=== PATIENT | male | born 1995 | race Caucasian/White ===

== ENCOUNTER 2017-10-07 07:43 | Emergency (ER) | payer MEDICAID, OTHER ==
[2017-10-07 08:41] LABS: ADD MAN DIFF? NO
[2017-10-07 08:44] LABS: BASOPHILS % 0.6 % (0.0-2.0); EOSINOPHILS # 0.2 10^3/ul (0.0-0.5); EOSINOPHILS % 2.7 % (0.0-7.0); HEMATOCRIT 37.1 % (42.0-52.0); HEMOGLOBIN 12.3 g/dl (14.0-18.0); LYMPHOCYTES # 1.2 10^3/ul (0.8-2.9); LYMPHOCYTES % 19.2 % (15.0-51.0); MEAN CORPUSCULAR HEMOGLOBIN 33.5 pg (29.0-33.0); MEAN CORPUSCULAR HGB CONC 33.2 g/dl (32.0-37.0); MEAN CORPUSCULAR VOLUME 101.1 fl (82.0-101.0); MONOCYTE # 0.7 10^3/ul (0.3-0.9); MONOCYTES % 10.6 % (0.0-11.0); NEUTROPHIL # 4.1 10^3/ul (1.6-7.5); NEUTROPHILS % 66.6 % (39.0-77.0); PLATELET COUNT 179 10^3/UL (140-415); RED BLOOD COUNT 3.67 10^6/ul (4.70-6.10)
[2017-10-07 08:44] LABS: WHITE BLOOD COUNT 6.2 10^3/ul (4.8-10.8)
[2017-10-07 09:08] LABS: ANION GAP 24 (8-16); BLOOD UREA NITROGEN 40 mg/dl (7-20); CALCIUM 8.7 mg/dl (8.4-10.2); CARBON DIOXIDE 25 mmol/L (21-31); CHLORIDE 96 mmol/L (97-110); CREATININE 10.04 mg/dl (0.61-1.24); GLUCOSE 104 mg/dl (70-220); POTASSIUM 4.7 mmol/L (3.5-5.1); SODIUM 140 mmol/L (135-144)
== END 2017-10-07 10:02 | disposition home or self-care (01) ==
LOC: E/R 07:43
DX: T82.898A Other specified complication of vascular prosthetic devices, implants and grafts, initial encounter (principal); N18.6 End stage renal disease; Y82.8 Other medical devices associated with adverse incidents; Z99.2 Dependence on renal dialysis
CPT/HCPCS: 80048; 85025; 93005; 93931; 99285-25

== ENCOUNTER 2018-04-01 12:11 | Emergency (ER) | payer SELFPAY, MEDICAID | END 2018-04-01 13:45 | disposition home or self-care (01) | LOC: FTE 13:45 | DX: S23.3XXA Sprain of ligaments of thoracic spine, initial encounter (principal); N18.6 End stage renal disease; X58.XXXA Exposure to other specified factors, initial encounter; Y92.9 Unspecified place or not applicable | CPT/HCPCS: 72072; 99283-25 ==

== ENCOUNTER 2018-04-03 20:04 | Emergency (ER) | payer MEDICAID ==
[2018-04-03 21:09] LABS: ADD MAN DIFF? NO
[2018-04-03 21:11] LABS: BASOPHILS % 0.2 % (0.0-2.0); HEMATOCRIT 35.3 % (42.0-52.0); HEMOGLOBIN 11.8 g/dl (14.0-18.0); LYMPHOCYTES # 0.8 10^3/ul (0.8-2.9); MEAN CORPUSCULAR HEMOGLOBIN 33.1 pg (29.0-33.0); MEAN CORPUSCULAR HGB CONC 33.4 g/dl (32.0-37.0); MEAN CORPUSCULAR VOLUME 98.9 fl (82.0-101.0); MEAN PLATELET VOLUME 9.9 fl (7.4-10.4); MONOCYTE # 0.3 10^3/ul (0.3-0.9); MONOCYTES % 2.9 % (0.0-11.0); NEUTROPHIL # 10.6 10^3/ul (1.6-7.5); NEUTROPHILS % 89.5 % (39.0-77.0); PLATELET COUNT 196 10^3/UL (140-415); RED BLOOD COUNT 3.57 10^6/ul (4.70-6.10); RED CELL DISTRIBUTION WIDTH 13.2 % (11.5-14.5)
[2018-04-03 21:11] LABS: WHITE BLOOD COUNT 11.8 10^3/ul (4.8-10.8)
[2018-04-03 21:31] LABS: ANION GAP 21 (5-13); BLOOD UREA NITROGEN 74 mg/dl (7-20); CALCIUM 10.1 mg/dl (8.4-10.2); CARBON DIOXIDE 18 mmol/L (21-31); CHLORIDE 99 mmol/L (97-110); GLUCOSE 215 mg/dl (70-220); POTASSIUM 4.7 mmol/L (3.5-5.1); SODIUM 138 mmol/L (135-144)
[2018-04-03 21:43] LABS: TROPONIN-I 0.018 ng/ml (0.000-0.120)
[2018-04-03 22:32] LABS: CREATININE 14.79 mg/dl (0.61-1.24); Estimated GFR 4 mL/min (>60)
== END 2018-04-04 00:24 | disposition home or self-care (01) ==
LOC: E/R 04-04 00:24
DX: N18.6 End stage renal disease (principal); T40.2X5A Adverse effect of other opioids, initial encounter; R42 Dizziness and giddiness
CPT/HCPCS: 36415; 80048; 84484; 85025; 93005; 99284-25

== ENCOUNTER 2018-07-12 20:42 | Inpatient (IN) | payer MEDICAID ==
[2018-07-12 21:47] LABS: ADD MAN DIFF? NO
[2018-07-12 21:49] LABS: BASOPHIL # 0.1 10^3/ul (0.0-0.1); BASOPHILS % 0.8 % (0.0-2.0); EOSINOPHILS # 0.3 10^3/ul (0.0-0.5); EOSINOPHILS % 3.4 % (0.0-7.0); HEMATOCRIT 33.4 % (42.0-52.0); HEMOGLOBIN 10.8 g/dl (14.0-18.0); LYMPHOCYTES # 1.7 10^3/ul (0.8-2.9); MEAN CORPUSCULAR HEMOGLOBIN 31.3 pg (29.0-33.0); MEAN CORPUSCULAR HGB CONC 32.3 g/dl (32.0-37.0); MEAN CORPUSCULAR VOLUME 96.8 fl (82.0-101.0); MEAN PLATELET VOLUME 9.9 fl (7.4-10.4); MONOCYTE # 0.8 10^3/ul (0.3-0.9); MONOCYTES % 7.4 % (0.0-11.0); NEUTROPHIL # 7.2 10^3/ul (1.6-7.5); PLATELET COUNT 172 10^3/UL (140-415); RED BLOOD COUNT 3.45 10^6/ul (4.70-6.10); RED CELL DISTRIBUTION WIDTH 12.6 % (11.5-14.5)
[2018-07-12 21:49] LABS: WHITE BLOOD COUNT 10.1 10^3/ul (4.8-10.8)
[2018-07-12] MEDS: morphine 2 MG INJ IV (21:57)
[2018-07-12 22:05] LABS: ALANINE AMINOTRANSFERASE 44 IU/L (13-69); ALBUMIN 4.2 g/dl (3.3-4.9); ALBUMIN/GLOBULIN RATIO 1.61; ALKALINE PHOSPHATASE 85 IU/L (42-121); ANION GAP 18 (5-13); ASPARTATE AMINO TRANSFERASE 16 IU/L (15-46); BILIRUBIN,INDIRECT 0.2 mg/dl (0-1.1); BILIRUBIN,TOTAL 0.2 mg/dl (0.2-1.3); BLOOD UREA NITROGEN 100 mg/dl (7-20); CALCIUM 9.7 mg/dl (8.4-10.2); CARBON DIOXIDE 17 mmol/L (21-31); CHLORIDE 105 mmol/L (97-110); GLUCOSE 81 mg/dl (70-220); LIPASE 100 U/L (23-300); POTASSIUM 5.3 mmol/L (3.5-5.1); SODIUM 140 mmol/L (135-144); TOTAL PROTEIN 6.8 g/dl (6.1-8.1)
[2018-07-12 22:11] LABS: CREATININE 15.22 mg/dl (0.61-1.24); Estimated GFR 4 mL/min (>60)
[2018-07-12 22:17] LABS: TROPONIN-I 0.045 ng/ml (0.000-0.120)
[2018-07-12 22:30] LABS: B-TYPE NATRIURETIC PEPTIDE 52600 PG/ML (0-125)
[2018-07-13] MEDS ORDERED: NACL 0.9% 3 ML SYG IV (00:30)
[2018-07-13] MEDS ORDERED: ONDANSETRON 4 MG TAB PO (00:30)
[2018-07-13] MEDS ORDERED: BISACODYL (EC) 5 MG TAB PO (00:30)
[2018-07-13] MEDS ORDERED: DOCUSATE SODIUM 100 MG CAP PO (00:30)
[2018-07-13] MEDS: HEPARIN 5,000 UNIT/1 ML VIAL SC ×4 (00:54→21:47)
[2018-07-13] MEDS: BACLOFEN 10 MG TAB PO ×3 (05:34→21:24)
[2018-07-13 05:40] LABS: ADD MAN DIFF? NO
[2018-07-13 05:41] LABS: BASOPHIL # 0.1 10^3/ul (0.0-0.1); BASOPHILS % 0.8 % (0.0-2.0); EOSINOPHILS # 0.1 10^3/ul (0.0-0.5); HEMOGLOBIN 11.4 g/dl (14.0-18.0); LYMPHOCYTES # 1.5 10^3/ul (0.8-2.9); LYMPHOCYTES % 17.6 % (15.0-51.0); MEAN CORPUSCULAR HEMOGLOBIN 31.8 pg (29.0-33.0); MEAN CORPUSCULAR HGB CONC 32.6 g/dl (32.0-37.0); MEAN CORPUSCULAR VOLUME 97.5 fl (82.0-101.0); MONOCYTE # 0.6 10^3/ul (0.3-0.9); MONOCYTES % 7.4 % (0.0-11.0); NEUTROPHIL # 6.3 10^3/ul (1.6-7.5); NEUTROPHILS % 72.7 % (39.0-77.0); PLATELET COUNT 164 10^3/UL (140-415); RED BLOOD COUNT 3.59 10^6/ul (4.70-6.10); RED CELL DISTRIBUTION WIDTH 12.1 % (11.5-14.5)
[2018-07-13 05:41] LABS: WHITE BLOOD COUNT 8.7 10^3/ul (4.8-10.8)
[2018-07-13 06:01] LABS: ALANINE AMINOTRANSFERASE 38 IU/L (13-69); ALBUMIN 4.4 g/dl (3.3-4.9); ALBUMIN/GLOBULIN RATIO 1.62; ALKALINE PHOSPHATASE 84 IU/L (42-121); ANION GAP 20 (5-13); ASPARTATE AMINO TRANSFERASE 9 IU/L (15-46); BILIRUBIN,INDIRECT 0.3 mg/dl (0-1.1); BILIRUBIN,TOTAL 0.3 mg/dl (0.2-1.3); BLOOD UREA NITROGEN 105 mg/dl (7-20); CALCIUM 9.9 mg/dl (8.4-10.2); CARBON DIOXIDE 15 mmol/L (21-31); CHLORIDE 106 mmol/L (97-110); CHOL/HDL RATIO 2.6 RATIO; CHOLESTEROL 117 mg/dl (100-200); GLUCOSE 76 mg/dl (70-220); HDL CHOLESTEROL 44 mg/dl (30-63); LDL CHOLESTEROL,CALCULATED 56 mg/dl; SODIUM 141 mmol/L (135-144); TOTAL PROTEIN 7.1 g/dl (6.1-8.1); TRIGLYCERIDES 84 mg/dl (0-149)
[2018-07-13 06:08] LABS: CREATININE 16.18 mg/dl (0.61-1.24); Estimated GFR 4 mL/min (>60)
[2018-07-13 06:09] LABS: POTASSIUM 6.1 mmol/L (3.5-5.1)
[2018-07-13] MEDS: SODIUM POLYSTYRENE 15 GM KIT (POWDER + SORBITOL) PO (06:44)
[2018-07-13] MEDS: NA BICARBONATE 8.4% 50 ML SYG IV (06:44)
[2018-07-13] MEDS: ALBUTEROL 0.5% (NEB) 2.5 MG/0.5 ML AMP INH (07:04)
[2018-07-13] MEDS: CALCIUM ACETATE 667 MG CAP PO ×2 (09:04→17:55)
[2018-07-13] MEDS: SEVELAMER CARBONATE 0.8 GM PKT PO ×2 (09:05→17:55)
[2018-07-13] MEDS: METOPROLOL (XL) 25 MG TAB PO (09:05)
[2018-07-13] MEDS: SEVELAMER CARBONATE 2.4 GM PKT PO ×2 (09:05→17:55)
[2018-07-13] MEDS: MULTIVIT/CA CARB/B CMPLX/FA TAB PO (09:05)
[2018-07-13] MEDS: PANTOPRAZOLE (EC) 40 MG TAB PO (12:00)
[2018-07-13 14:36] LABS: HEPATITIS B SURFACE ANTIGEN NEGATIVE (NEGATIVE)
[2018-07-13] MEDS: METOPROLOL (XL) 50 MG TAB PO (16:16)
[2018-07-13] MEDS: hydrALAzine 20 MG INJ IV (17:28)
[2018-07-13] MEDS: ACETAMINOPHEN 325 MG TAB PO (18:31)
[2018-07-13] MEDS ORDERED: METOPROLOL (XL) 50 MG TAB PO (21:00)
[2018-07-13] MEDS ORDERED: SUMATRIPTAN 6 MG/0.5 ML INJ SC (23:30)
[2018-07-14] MEDS: PIPER-TAZO 2.25 GM (PMX) 50 ML IVPB ×2 (01:40→14:00)
[2018-07-14] MEDS: SUMATRIPTAN 6 MG/0.5 ML INJ SC (01:43)
[2018-07-14] MEDS: PANTOPRAZOLE (EC) 40 MG TAB PO (05:48)
[2018-07-14] MEDS: BACLOFEN 10 MG TAB PO ×3 (05:48→21:56)
[2018-07-14] MEDS: HEPARIN 5,000 UNIT/1 ML VIAL SC ×3 (05:54→21:57)
[2018-07-14] MEDS: SEVELAMER CARBONATE 0.8 GM PKT PO ×3 (08:02→17:55)
[2018-07-14] MEDS: CALCIUM ACETATE 667 MG CAP PO ×3 (08:02→17:59)
[2018-07-14] MEDS: MULTIVIT/CA CARB/B CMPLX/FA TAB PO (08:02)
[2018-07-14] MEDS: SEVELAMER CARBONATE 2.4 GM PKT PO ×3 (08:02→17:59)
[2018-07-14] MEDS: METOPROLOL (XL) 50 MG TAB PO ×2 (08:03→21:56)
[2018-07-14 08:29] LABS: ADD MAN DIFF? NO
[2018-07-14 08:49] LABS: BASOPHILS % 0.4 % (0.0-2.0); EOSINOPHILS # 0.1 10^3/ul (0.0-0.5); EOSINOPHILS % 1.1 % (0.0-7.0); HEMATOCRIT 36.1 % (42.0-52.0); HEMOGLOBIN 12.3 g/dl (14.0-18.0); LYMPHOCYTES # 1.3 10^3/ul (0.8-2.9); LYMPHOCYTES % 16.4 % (15.0-51.0); MEAN CORPUSCULAR HEMOGLOBIN 31.3 pg (29.0-33.0); MEAN CORPUSCULAR HGB CONC 34.1 g/dl (32.0-37.0); MEAN CORPUSCULAR VOLUME 91.9 fl (82.0-101.0); MEAN PLATELET VOLUME 10.5 fl (7.4-10.4); MONOCYTE # 0.7 10^3/ul (0.3-0.9); MONOCYTES % 9.6 % (0.0-11.0); NEUTROPHIL # 5.5 10^3/ul (1.6-7.5); NEUTROPHILS % 72.2 % (39.0-77.0); PLATELET COUNT 194 10^3/UL (140-415); RED BLOOD COUNT 3.93 10^6/ul (4.70-6.10); RED CELL DISTRIBUTION WIDTH 11.9 % (11.5-14.5)
[2018-07-14 08:49] LABS: WHITE BLOOD COUNT 7.6 10^3/ul (4.8-10.8)
[2018-07-14 09:03] LABS: ALANINE AMINOTRANSFERASE 25 IU/L (13-69); ALBUMIN/GLOBULIN RATIO 1.48; ALKALINE PHOSPHATASE 73 IU/L (42-121); ANION GAP 16 (5-13); ASPARTATE AMINO TRANSFERASE 9 IU/L (15-46); BILIRUBIN,INDIRECT 0.6 mg/dl (0-1.1); BILIRUBIN,TOTAL 0.6 mg/dl (0.2-1.3); BLOOD UREA NITROGEN 55 mg/dl (7-20); CALCIUM 8.9 mg/dl (8.4-10.2); CARBON DIOXIDE 30 mmol/L (21-31); CHLORIDE 89 mmol/L (97-110); CREATININE 10.79 mg/dl (0.61-1.24); Estimated GFR 6 mL/min (>60); GLUCOSE 87 mg/dl (70-220); POTASSIUM 3.9 mmol/L (3.5-5.1); SODIUM 135 mmol/L (135-144); TOTAL PROTEIN 6.7 g/dl (6.1-8.1)
[2018-07-15] MEDS: BACLOFEN 10 MG TAB PO ×2 (05:27→14:00)
[2018-07-15] MEDS: HEPARIN 5,000 UNIT/1 ML VIAL SC ×2 (05:28→14:00)
[2018-07-15] MEDS: PANTOPRAZOLE (EC) 40 MG TAB PO (05:28)
[2018-07-15 06:50] LABS: ADD MAN DIFF? NO
[2018-07-15 06:55] LABS: WHITE BLOOD COUNT 7.7 10^3/ul (4.8-10.8)
[2018-07-15 06:55] LABS: BASOPHIL # 0.1 10^3/ul (0.0-0.1); BASOPHILS % 0.7 % (0.0-2.0); EOSINOPHILS % 0.5 % (0.0-7.0); HEMATOCRIT 36.6 % (42.0-52.0); HEMOGLOBIN 12.2 g/dl (14.0-18.0); LYMPHOCYTES # 0.6 10^3/ul (0.8-2.9); MEAN CORPUSCULAR HEMOGLOBIN 31.2 pg (29.0-33.0); MEAN CORPUSCULAR HGB CONC 33.3 g/dl (32.0-37.0); MEAN CORPUSCULAR VOLUME 93.6 fl (82.0-101.0); MEAN PLATELET VOLUME 10.6 fl (7.4-10.4); MONOCYTE # 0.7 10^3/ul (0.3-0.9); NEUTROPHIL # 6.2 10^3/ul (1.6-7.5); NEUTROPHILS % 81.3 % (39.0-77.0); PLATELET COUNT 178 10^3/UL (140-415); RED BLOOD COUNT 3.91 10^6/ul (4.70-6.10); RED CELL DISTRIBUTION WIDTH 11.9 % (11.5-14.5)
[2018-07-15 07:16] LABS: ALANINE AMINOTRANSFERASE 27 IU/L (13-69); ALBUMIN/GLOBULIN RATIO 1.42; ALKALINE PHOSPHATASE 68 IU/L (42-121); ANION GAP 20 (5-13); ASPARTATE AMINO TRANSFERASE 10 IU/L (15-46); BLOOD UREA NITROGEN 72 mg/dl (7-20); CALCIUM 9.6 mg/dl (8.4-10.2); CARBON DIOXIDE 30 mmol/L (21-31); CHLORIDE 85 mmol/L (97-110); GLUCOSE 110 mg/dl (70-220); POTASSIUM 4.4 mmol/L (3.5-5.1); SODIUM 135 mmol/L (135-144); TOTAL PROTEIN 6.8 g/dl (6.1-8.1)
[2018-07-15 07:30] LABS: CREATININE 14.28 mg/dl (0.61-1.24); Estimated GFR 4 mL/min (>60)
[2018-07-15] MEDS: SEVELAMER CARBONATE 0.8 GM PKT PO ×2 (07:55→12:46)
[2018-07-15] MEDS: SEVELAMER CARBONATE 2.4 GM PKT PO ×2 (07:55→12:46)
[2018-07-15] MEDS: METOPROLOL (XL) 50 MG TAB PO (08:34)
[2018-07-15] MEDS: CALCIUM ACETATE 667 MG CAP PO ×2 (08:35→12:47)
[2018-07-15] MEDS: MULTIVIT/CA CARB/B CMPLX/FA TAB PO (08:35)
[2018-07-15] MEDS: LISINOPRIL 20 MG TAB PO (12:47)
== END 2018-07-15 16:16 | disposition home or self-care (01) | DRG 313 ==
LOC: FTE 20:42 → TEL 07-13 00:15
PROC: 5A1D70Z Performance of Urinary Filtration, Intermittent, Less than 6 Hours Per Day (ICD-10-PCS; principal; 2018-07-13)
PROC: CF1C1ZZ Planar Nuclear Medicine Imaging of Hepatobiliary System, All using Technetium 99m (Tc-99m) (ICD-10-PCS; 2018-07-13)
DX: R07.9 Chest pain, unspecified (principal); N18.6 End stage renal disease; I12.0 Hypertensive chronic kidney disease with stage 5 chronic kidney disease or end stage renal disease; E87.2 Acidosis; Z99.2 Dependence on renal dialysis; D63.1 Anemia in chronic kidney disease; Z86.711 Personal history of pulmonary embolism; E87.5 Hyperkalemia; K82.8 Other specified diseases of gallbladder; E87.70 Fluid overload, unspecified; P19.9 Metabolic acidemia in newborn, unspecified; E83.9 Disorder of mineral metabolism, unspecified
CPT/HCPCS: 36415; 71045; 74176; 76705; 78226; 80053; 80061; 83690; 83735; 83880; 84443; 84484; 85025; 87340; 90935; 93005; 94664; 96374; 99285-25

== ENCOUNTER 2018-07-23 09:55 | Emergency (ER) | payer OTHER, MEDICAID ==
[2018-07-23] MEDS: ONDANSETRON 4 MG INJ IV ×2 (10:51→11:10)
[2018-07-23 11:07] LABS: ADD MAN DIFF? NO
[2018-07-23] MEDS: morphine 4 MG/ML VIAL IV (11:10)
[2018-07-23 11:14] LABS: WHITE BLOOD COUNT 7.9 10^3/ul (4.8-10.8)
[2018-07-23 11:14] LABS: BASOPHIL # 0.1 10^3/ul (0.0-0.1); BASOPHILS % 0.8 % (0.0-2.0); EOSINOPHILS # 0.3 10^3/ul (0.0-0.5); EOSINOPHILS % 3.7 % (0.0-7.0); HEMATOCRIT 32.5 % (42.0-52.0); HEMOGLOBIN 10.6 g/dl (14.0-18.0); LYMPHOCYTES # 1.6 10^3/ul (0.8-2.9); MEAN CORPUSCULAR HEMOGLOBIN 31.8 pg (29.0-33.0); MEAN CORPUSCULAR HGB CONC 32.6 g/dl (32.0-37.0); MEAN CORPUSCULAR VOLUME 97.6 fl (82.0-101.0); MEAN PLATELET VOLUME 11.6 fl (7.4-10.4); MONOCYTE # 0.8 10^3/ul (0.3-0.9); MONOCYTES % 9.8 % (0.0-11.0); NEUTROPHIL # 5.2 10^3/ul (1.6-7.5); NEUTROPHILS % 65.3 % (39.0-77.0); PLATELET COUNT 155 10^3/UL (140-415); RED BLOOD COUNT 3.33 10^6/ul (4.70-6.10)
[2018-07-23 11:42] LABS: ALANINE AMINOTRANSFERASE 61 IU/L (13-69); ALBUMIN 4.2 g/dl (3.3-4.9); ALBUMIN/GLOBULIN RATIO 1.55; ALKALINE PHOSPHATASE 78 IU/L (42-121); ANION GAP 21 (5-13); ASPARTATE AMINO TRANSFERASE 12 IU/L (15-46); BILIRUBIN,INDIRECT 0.1 mg/dl (0-1.1); BILIRUBIN,TOTAL 0.1 mg/dl (0.2-1.3); BLOOD UREA NITROGEN 108 mg/dl (7-20); CALCIUM 9.9 mg/dl (8.4-10.2); CARBON DIOXIDE 22 mmol/L (21-31); CHLORIDE 101 mmol/L (97-110); GLUCOSE 100 mg/dl (70-220); LIPASE 60 U/L (23-300); POTASSIUM 5.8 mmol/L (3.5-5.1); SODIUM 144 mmol/L (135-144); TOTAL PROTEIN 6.9 g/dl (6.1-8.1)
[2018-07-23 11:48] LABS: CREATININE 18.65 mg/dl (0.61-1.24); Estimated GFR 3 mL/min (>60)
[2018-07-23] MEDS: INSULIN REGULAR, HUMAN 100 UNIT/1 ML 3ML VIAL IVP (13:06)
[2018-07-23] MEDS: DEXTROSE 50% 50 ML SYRINGE IV (13:07)
[2018-07-23] MEDS: ALBUTEROL 0.5% (NEB) 2.5 MG/0.5 ML AMP INH (13:23)
== END 2018-07-23 14:37 | disposition home or self-care (01) ==
LOC: E/R 09:55
DX: R10.13 Epigastric pain (principal); N18.6 End stage renal disease; E87.5 Hyperkalemia; E87.70 Fluid overload, unspecified; R06.02 Shortness of breath; Z99.2 Dependence on renal dialysis
CPT/HCPCS: 36415; 71045; 80053; 82962; 83690; 85025; 93005; 94664; 96374; 96375; 96376; 99285-25

== ENCOUNTER 2018-09-07 14:26 | Emergency (ER) | payer OTHER ==
[2018-09-07] MEDS: LIDOCAINE/MYLANTA 40 ML BTL PO (15:56)
[2018-09-07] MEDS: OXYCODONE/ACETAMINOPHEN (5/325) TAB PO (15:56)
[2018-09-07] MEDS: BELLADONNA/PHENOBARBITAL TAB PO (15:56)
== END 2018-09-07 16:47 | disposition home or self-care (01) ==
LOC: E/R 14:26
DX: I51.7 Cardiomegaly (principal); I12.0 Hypertensive chronic kidney disease with stage 5 chronic kidney disease or end stage renal disease; N18.6 End stage renal disease
CPT/HCPCS: 74176; 99284-25